=== PATIENT | male | born 1960 | race Hispanic/Latino ===

== ENCOUNTER → 2018-06-24 | Day surgery (SDC) | payer OTHER ==
[~2018-06-24] MED LIST: AMPICILLIN PO; CLINDAMYCIN 300MG 50 ML IV ONE; FENTANYL CITRATE/PF 100MCG/2 ML INJ ONE; GENTAMICIN 120MG/NS 100ML 100 ML ONE; LIDOCAINE HCL 2% LOCAL INJ 5 ML SDV VIAL INJ ONE; MIDAZOLAM HCL 2 MG/2 ML VIAL ONE; PROPOFOL IV EMULSION 10 MG/ML 20 ML VIAL ONE; PYRIDIUM100 MG PO
[2018-06-24 08:40] VITALS: BP 117/81
--- NOTE | 2018-06-24 12:58 | Operative Report ---
DATE OF PROCEDURE: June 24, 2018 PREOPERATIVE DIAGNOSIS: Prostate-specific antigen of 11. POSTOPERATIVE DIAGNOSIS Prostate-specific antigen of 11. PROCEDURES 1. Prostate ultrasound. 2. Ultrasound guidance needle biopsy. 3. Needle biopsy of prostate. ANESTHESIA: General. ESTIMATED BLOOD LOSS: Minimal. COMPLICATIONS: None. INDICATIONS FOR PROCEDURE: Mr. Pandya is a 57-year-old male with an elevated PSA of 11. He and I had a long discussion regarding the alternatives, risks and benefits, including doing nothing and prostate biopsy. He voiced an understanding of the options, the alternatives, and the risks and benefits. He had a negative urine culture. He was given prophylactic antibiotics per the guidelines. 1. PROCEDURE IN DETAIL: After a time out was taken, a prostate ultrasound was performed. A transrectal ultrasound probe was inserted anally with a plethora of lubrication. There were normal-appearing seminal vesicles. There was a large prostate greater than 62 mL. No calcifications. No hypoechoic areas. Impression: Benign prostatic hypertrophy. 2. Ultrasound guidance. I was present and I guided the ultrasound biopsy. 3. Needle biopsy of the prostate. Total of 12-core approach was performed for the prostate biopsies. Specimens were passed off the table with minimal bleeding. The patient tolerated the procedure well and was transported to the recovery room in excellent condition. No untoward effects noted. Job#: [id number]
== END | disposition home or self-care (01) ==
LOC: OR 07:04
PROVIDERS: ATTEND Urology
DX: R97.20 Elevated prostate specific antigen [PSA] (principal); N41.0 Acute prostatitis; Z01.810 Encounter for preprocedural cardiovascular examination
CPT/HCPCS: 55700; 76872; 88305; 93005; J1580; J2001; J2250; J2704; 76998

== ENCOUNTER 2018-06-25 22:53 | Inpatient (IN) | payer OTHER ==
[~2018-06-25] VITALS: Ht 170.2 cm; Wt 76.4 kg
[2018-06-26] VITALS (7 sets, daily range): BP systolic 108–126; BP diastolic 64–75
[2018-06-26 00:16] LABS: BASOPHILS % 0.1 % (0.0-1.0); HEMOGLOBIN 14.7 g/dL (14.0-18.0); LYMPHOCYTES # (AUTO) 0.4 (1.0-3.2); LYMPHOCYTES % 2.8 % (18.0-39.1); MEAN CORPUSCULAR HEMOGLOBIN 31.1 pg (28-32); MEAN CORPUSCULAR VOLUME 88.8 fL (81-99); MONOCYTES # (AUTO) 0.6 (0.2-0.8); MONOCYTES % 4.3 % (4.4-11.3); PLATELET COUNT 205 x10e3/uL (140-360); RED BLOOD COUNT 4.73 x10e6/uL (4.3-5.7); RED CELL DISTRIBUTION WIDTH 12.4 % (11.7-14.4)
[2018-06-26 00:30] LABS: CLARITY,URINE CLOUDY (CLEAR); COLOR,URINE YELLOW (YELLOW); LEUKOCYTE ESTERASE ,URINE TRACE (NEGATIVE); NITRITE,URINE NEGATIVE (NEGATIVE); PROTEIN,URINE DIPSTICK 1+ (NEGATIVE)
[2018-06-26 00:31] LABS: BILIRUBIN,URINE NEGATIVE (NEGATIVE); KETONES,URINE NEGATIVE (NEGATIVE); URINE UROBILINOGEN 0.2 mg/dL (0.2 - 1)
[2018-06-26 00:36] LABS: ALBUMIN 3.6 g/dL (3.5-5.0); ALBUMIN/GLOBULIN RATIO 0.9 (0.8-2.0); ALKALINE PHOSPHATASE 68 IU/L (40-150); ANION GAP 14.5 mmol/L (8-16); BLOOD UREA NITROGEN 22 mg/dL (7-26); BUN/CREATININE RATIO 20 (6-25); CALCIUM 8.8 mg/dL (8.4-10.2); CARBON DIOXIDE 18 mmol/L (22-29); CHLORIDE 107 mmol/L (98-107); EST GLOMERULAR FILTRATION RATE > 60 ML/MIN (60-); GLUCOSE 133 mg/dL (74-118); POTASSIUM 3.5 mmol/L (3.5-5.1); SODIUM 136 mmol/L (136-145)
[2018-06-26 00:44] LABS: BACTERIA,URINE MODERATE /HPF; EPITHELIAL CELLS,URINE FEW /LPF; MUCUS,URINE MANY (RARE); RBC,URINE >50 /HPF (0-5)
[2018-06-26] MEDS ORDERED: CEFTRIAXONE SOD 1 GM VIAL IV SCH ×2 (00:45→10:30)
[2018-06-26] MEDS ORDERED: ACETAMINOPHEN 325 MG TAB PO ONE (00:45)
[2018-06-26] MEDS ORDERED: SODIUM CHLORIDE 0.9% 1000ML 1,000 ML IV SCH ×3 (00:45→03:30)
[2018-06-26 01:11] LABS: ALANINE AMINOTRANSFERASE 38 IU/L (0-55)
[2018-06-26] MEDS ORDERED: CEFTRIAXONE SOD 1 GM/NS 50 ML 50 ML IV ONE (01:55)
[2018-06-26] MEDS: SODIUM CHLORIDE 0.9% 1000ML 1,000 ML IV SCH ×4 (02:07→18:08)
--- NOTE | 2018-06-26 02:09 | Diagnostic Imaging Report ---
EXAM: CT ABDOMEN/PELVIS WO DATE: 06/26/2018 12:49 AM INDICATION: Right flank pain, status post prostate biopsy COMPARISON: None TECHNIQUE: The abdomen and pelvis were scanned using a multidetector helical scanner. Coronal and sagittal reformations were obtained. CT low dose techniques were utilized, as applicable. IV Contrast: 0 ml Isovue 300/370 FINDINGS: Lack of IV contrast decreases sensitivity in evaluating abdominal and pelvic organs. LOWER THORAX: No consolidations LIVER/BILIARY: Incidental calcifications posteriorly. Otherwise unremarkable noncontrast appearance. GALLBLADDER: Unremarkable SPLEEN: Unremarkable PANCREAS: Unremarkable ADRENALS: No nodules KIDNEYS: No stones. No hydronephrosis. GI TRACT: Mild thickening of the rectum and to a lesser extent sigmoid colon with marked perirectal inflammatory changes. Normal appendix. VESSELS: Minimal atherosclerotic calcification PERITONEUM/RETROPERITONEUM: No free air or fluid LYMPH NODES: No lymphadenopathy REPRODUCTIVE ORGANS/BLADDER: Prostatomegaly with circumferential bladder wall thickening which may indicate chronic outlet obstruction. Moderate stranding around the prostate. SOFT TISSUES: Small fat-containing left inguinal hernia. BONES: No suspicious bone lesions. Posterior disc osteophyte at L5-S1. IMPRESSION: 1. Marked inflammatory changes in the pelvis and about the enlarged prostate related to recent biopsy. 2. Proctitis and mild sigmoid wall thickening, presumably reactive or inflammatory related to recent procedure. Signed by: Dr Darlene Granger MD on 06/26/2018 2:06 AM
--- NOTE | 2018-06-26 03:45 | NUR ---
2 LITERS TOTAL GIVEN
--- NOTE | 2018-06-26 05:50 | NUR ---
Patient arrived to unit at 0420 by a WC and escorted by RAH Brady and his . Assisted patient to room comfortable. AAO x 4. No sob noted. No acute distress noted. Head to toe assessment completed. Bed at low position and locked. Oriented patient to surroundings and voiced understanding. Call light within reach. Patient reports of no pain at this time. Patient stable and will continue to monitor.
--- NOTE | 2018-06-26 07:02 | NUR ---
Received patient mid fowlers position, side rails upx2, call light within reach. AAOX4 to time, person, place, situation. Respirations even and unlabored. Instructed patient to use call light for assistance. Voiced understanding.
[2018-06-26] MEDS ORDERED: HYDROCODONE/APAP 10MG-325MG TAB PO PRN (10:30)
[2018-06-26] MEDS ORDERED: ONDANSETRON HCL INJ 2MG/ML 2ML 2 MG/ML VIAL IV PRN (10:30)
[2018-06-26] MEDS: ACETAMINOPHEN 325 MG TAB PO PRN ×2 (11:51→19:50)
[2018-06-26] MEDS: CEFTRIAXONE SOD 1 GM/NS 50 ML 50 ML IV SCH (11:51)
--- NOTE | 2018-06-26 15:34 | History and Physical ---
CHIEF COMPLAINT: Fever associated with urine tract infection, prostatitis status post prostate biopsy on June 24, 2018. HISTORY OF PRESENT ILLNESS: Patient is a 57-year-old male status post prostate biopsy on Wednesday, June 24, 2018. The patient had an ultrasound-guided needle biopsy. He came in with high fever and hematuria. The patient's laboratory workup in urine shows cloudy urine, 1+ protein, 4+ blood, trace leukocyte esterase with wbc's of 20 and rbc's greater than 50, moderate bacteria. Patient also had a CT scan of abdomen and pelvis showing that he had marked inflammatory changes in the pelvic and about the enlarged prostate related to recent biopsy. He had proctitis and mild sigmoid wall thickening, presumably reactive or inflammatory, related to the recent biopsy on the CT scan of the abdomen and pelvis done in the emergency room last night. The patient is otherwise stable now. He is comfortable other than pelvic pain. PAST MEDICAL HISTORY: Enlarged prostate. PAST SURGICAL HISTORY : Prostate biopsy on June 24, 2018. SOCIAL HISTORY: Patient does not smoke or use alcohol. No recreational drugs. ALLERGIES: NO KNOWN ALLERGY. HOME MEDICATIONS: None. REVIEW OF SYSTEMS: Suprapubic pain, pain with urination, and hematuria. PHYSICAL EXAMINATION VITAL SIGNS: T-max 101.9, T-current is 99.1. Blood pressure is 125/69, pulse rate 80, and respirations 18. GENERAL: The patient is in no acute distress. He is awake. HEENT: Normocephalic, atraumatic. Sclerae anicteric. NECK: Supple grossly. PULMONARY: Clear. CARDIOVASCULAR: Regular rate and rhythm. ABDOMEN: Soft, unremarkable. EXTREMITIES: No cyanosis or edema. NEUROLOGIC: No gross focal deficit. LABORATORY DATA: Sodium is 136, potassium 3.5, chloride 107, bicarb 18, BUN 22, creatinine 1.1, glucose 133. WBC is 14, hemoglobin 14.7, hematocrit 42, and platelets are 205. IMPRESSION 1. Prostatitis. 2. Hematuria. 3. Urinary tract infection, all related to post complication of prostate biopsy. PLAN: Continue with IV antibiotics. IV fluid. Pain control. Consultation with Dr. Nader Shearer, patient's urologist. We will monitor the patient closely at this time on observation. Job#: [id number] [facility]
--- NOTE | 2018-06-26 18:25 | NUR ---
Resting in bed. No s/s of acute distress noted. Report to be given to oncoming nurse
--- NOTE | 2018-06-26 18:30 | Consultation ---
DATE OF CONSULTATION: June 26, 2018 INITIAL VISIT CONSULTATION SERVICE: Urology. ATTENDING: Dr. Xavier Rayo. REASON FOR VISIT: UTI and sepsis following prostate biopsy. HISTORY OF PRESENT ILLNESS: This is a 57-year-old patient who was found to have an elevated PSA. On June 24, 2018, he underwent biopsy of the prostate. Antibiotic was given. The patient was admitted to the hospital through the emergency room with leukocyte esterase positive as well as elevated leukocytes. Patient did have fever. CT scan of the abdomen and pelvis that was done in the emergency room. The CT suggested some inflammatory changes in the pelvis. PAST MEDICAL HISTORY: Enlarged prostate and elevated PSA. PAST SURGICAL HISTORY: Prostate biopsy, June 24, [address] Nader Shearer. HOME MEDICATIONS: None. REVIEW OF SYSTEMS: Except for the suprapubic tube and history of fever and some hematuria. All other 12 systems were negative. FAMILY HISTORY: Noncontributory. MEDICATIONS: See MAR. PHYSICAL EXAMINATION GENERAL: Patient is alert and oriented x 3. VITAL SIGNS: Blood pressure 125/70, pulse 80, respirations 16, temperature now 97.9. HEENT: Head symmetric. Eyes normal. NECK: No JVD or masses. CHEST: Clear. HEART: Regular. ABDOMEN: Soft. : External genitalia unremarkable. No testicular masses. RECTAL: Enlarged and tender prostate which is somewhat soft. LABORATORY DATA: White count 14.41, hemoglobin 14.7. Creatinine 1.1, BUN 22. Electrolytes normal. Urinalysis with 50 red blood cells and 11 to 20 white blood cells per high power field. Urine culture is still pending. IMPRESSION 1. Urinary tract infection, history of sepsis. 2. Status post biopsy of the prostate. 3. History of enlarged prostate and elevated prostate specific antigen. 4. Low potassium. PLAN: Continue with current antibiotic treatment. Pending the culture. Antibiotic may have to be changed. So far, his response to antibiotic is well. Job#: [id number] [facility]
[2018-06-27] VITALS (8 sets, daily range): BP systolic 104–129; BP diastolic 60–82
[2018-06-27] MEDS: CEFTRIAXONE SOD 1 GM/NS 50 ML 50 ML IV SCH (00:30)
[2018-06-27 05:06] LABS: BASOPHILS % 0.2 % (0.0-1.0); EOSINOPHILS % 0.1 % (0.0-6.0); HEMATOCRIT 36.8 % (38.2-49.6); HEMOGLOBIN 12.4 g/dL (14.0-18.0); LYMPHOCYTES # (AUTO) 0.9 (1.0-3.2); MEAN CORPUSCULAR HEMOGLOBIN 30.7 pg (28-32); MEAN CORPUSCULAR HGB CONC 33.7 g/dL (31-35); MEAN CORPUSCULAR VOLUME 91.1 fL (81-99); MONOCYTES # (AUTO) 1.1 (0.2-0.8); MONOCYTES % 7.8 % (4.4-11.3); NEUTROPHILS # (AUTO) 12.2 (2.1-6.9); NEUTROPHILS % 85.3 % (38.7-80.0); PLATELET COUNT 154 x10e3/uL (140-360); RED BLOOD COUNT 4.04 x10e6/uL (4.3-5.7)
[2018-06-27 05:32] LABS: ALANINE AMINOTRANSFERASE 36 IU/L (0-55); ALBUMIN 2.6 g/dL (3.5-5.0); ALBUMIN/GLOBULIN RATIO 0.7 (0.8-2.0); ALKALINE PHOSPHATASE 82 IU/L (40-150); BLOOD UREA NITROGEN 8 mg/dL (7-26); BUN/CREATININE RATIO 8 (6-25); CALCIUM 8.1 mg/dL (8.4-10.2); CARBON DIOXIDE 22 mmol/L (22-29); CHLORIDE 104 mmol/L (98-107); CREATININE, SERUM 0.96 mg/dL (0.72-1.25); EST GLOMERULAR FILTRATION RATE > 60 ML/MIN (60-); GLUCOSE 120 mg/dL (74-118); SODIUM 134 mmol/L (136-145)
[2018-06-27] MEDS: ACETAMINOPHEN 325 MG TAB PO PRN ×2 (06:40→20:05)
[2018-06-27] MEDS: SODIUM CHLORIDE 0.9% 1000ML 1,000 ML IV SCH (09:55)
[2018-06-27] MEDS ORDERED: CEFEPIME HCL 1 GM VIAL IV SCH (10:30)
[2018-06-27] MEDS ORDERED: CEFEPIME 1GM/NS 0.9% 50 ML 50 ML IV SCH (11:00)
[2018-06-27] MEDS: CEFEPIME 1GM/NS 0.9% 50 ML 50 ML IV SCH ×2 (11:30→22:33)
[2018-06-27] MEDS: VANCOMYCIN 1GM/NS 250 ML 250 ML IV SCH ×2 (12:30→23:15)
[2018-06-27] MEDS ORDERED: PHENAZOPYRIDINE HCL 100 MG TAB PO ONE (17:10)
--- NOTE | 2018-06-27 17:42 | NUR ---
PATIENT ARRIVED TO ROOM 289 AT THIS TIME. HE IS IN STABLE CONDITION. ORIENTED TO ROOM, BATHROOM, AND VISITING HOURS.
--- NOTE | 2018-06-27 18:49 | NUR ---
REPORT GIVEN TO ONCOMING NURSE, PATIENT IS IN STABLE CONDITION. NO ACUTE DISTRESS NOTED. DENIES PAIN OR DISCOMFORT. AT BEDSIDE. CALL LIGHT WITHIN REACH. BED IN THE LOWEST POSITION.
[2018-06-27] MEDS: PHENAZOPYRIDINE HCL 100 MG TAB PO SCH (22:21)
[2018-06-28] VITALS (8 sets, daily range): BP systolic 118–133; BP diastolic 70–84
[2018-06-28] MEDS: CEFEPIME 1GM/NS 0.9% 50 ML 50 ML IV SCH ×2 (00:25→11:38)
[2018-06-28] MEDS: SODIUM CHLORIDE 0.9% 1000ML 1,000 ML IV SCH ×3 (00:49→21:18)
[2018-06-28 05:57] LABS: BASOPHILS % 0.3 % (0.0-1.0); EOSINOPHILS # (AUTO) 0.1 (0.0-0.4); EOSINOPHILS % 0.6 % (0.0-6.0); HEMATOCRIT 34.9 % (38.2-49.6); HEMOGLOBIN 11.6 g/dL (14.0-18.0); LYMPHOCYTES # (AUTO) 1.5 (1.0-3.2); LYMPHOCYTES % 15.3 % (18.0-39.1); MEAN CORPUSCULAR HEMOGLOBIN 29.8 pg (28-32); MEAN CORPUSCULAR HGB CONC 33.2 g/dL (31-35); MEAN CORPUSCULAR VOLUME 89.7 fL (81-99); MONOCYTES % 10.1 % (4.4-11.3); NEUTROPHILS # (AUTO) 6.9 (2.1-6.9); PLATELET COUNT 181 x10e3/uL (140-360); RED BLOOD COUNT 3.89 x10e6/uL (4.3-5.7); RED CELL DISTRIBUTION WIDTH 13.2 % (11.7-14.4)
[2018-06-28 06:25] LABS: BLOOD UREA NITROGEN 9 mg/dL (7-26); BUN/CREATININE RATIO 11 (6-25); CALCIUM 8.4 mg/dL (8.4-10.2); CARBON DIOXIDE 21 mmol/L (22-29); CHLORIDE 109 mmol/L (98-107); CREATININE, SERUM 0.82 mg/dL (0.72-1.25); EST GLOMERULAR FILTRATION RATE > 60 ML/MIN (60-); GLUCOSE 98 mg/dL (74-118); SODIUM 138 mmol/L (136-145)
--- NOTE | 2018-06-28 07:18 | NUR ---
RECEIVED PATIENT RESTING IN BED. NO ACUTE DISTRESS NOTED. AT BEDSIDE. CALL LIGHT WITHIN REACH. BED IN THE LOWEST POSITION.
[2018-06-28] MEDS: PHENAZOPYRIDINE HCL 100 MG TAB PO SCH ×3 (09:02→17:46)
[2018-06-28] MEDS: VANCOMYCIN 1GM/NS 250 ML 250 ML IV SCH ×2 (10:03→23:00)
[2018-06-28] MEDS: NYSTATIN SUSPENSION 5 ML UDC PO SCH ×2 (14:24→21:00)
--- NOTE | 2018-06-28 19:15 | NUR ---
REPORT GIVEN TO ONCOMING NURSE, PATIENT IS SITTING UP IN COUCH. NO ACUTE DISTRESS NOTED. CALL LIGHT WITHIN REACH.
--- NOTE | 2018-06-28 20:00 | NUR ---
Pt had shower. Changed linens.
--- NOTE | 2018-06-28 21:45 | NUR ---
Blood drawn and sent to lab for vanco trough.
--- NOTE | 2018-06-28 22:10 | NUR ---
awaiting on lab results of anjelica malave
--- NOTE | 2018-06-28 22:25 | NUR ---
IV to right ac leaking. IV removed from right ac with tip intact. New IV placed to right forearm.
[2018-06-29] VITALS: BP 120/64
[2018-06-29] MEDS: CEFEPIME 1GM/NS 0.9% 50 ML 50 ML IV SCH (00:25)
[2018-06-29] MEDS: SODIUM CHLORIDE 0.9% 1000ML 1,000 ML IV SCH (00:49)
[2018-06-29 04:15] VITALS: BP 110/64
--- NOTE | 2018-06-29 07:30 | NUR ---
PT UP IN BED NO DISTRESS NTOED,DENIES PAIN.
[2018-06-29 07:33] VITALS: BP 137/70
[2018-06-29] MEDS: NYSTATIN SUSPENSION 5 ML UDC PO SCH (09:00)
[2018-06-29] MEDS: PHENAZOPYRIDINE HCL 100 MG TAB PO SCH (09:15)
[2018-06-29] MEDS: VANCOMYCIN 1GM/NS 250 ML 250 ML IV SCH (09:15)
--- NOTE | 2018-06-29 09:16 | NUR ---
DR KAYE HERE OK TO DCD HOME
--- NOTE | 2018-06-29 09:46 | Discharge Summary ---
FINAL DIAGNOSES 1. Sepsis without shock. 2. Fever and leukocytosis, resolved. 3. Urinary tract infection associated with prostatitis, status post prostate biopsy. The bacteria is Escherichia coli and Enterococcus faecalis, sensitive to ampicillin. SUMMARY: Patient is a 57-year-old male, status post prostate biopsy. The patient came in with fever, leukocytosis and chills. Patient also has low blood pressure and responded to IV fluid bolus. He did better. He had a urinary tract infection associated with prostatitis, dysuria and increased urinary frequency. Urine culture grew out gram-negative rods consistent with E. coli and Enterococcus faecalis, all sensitive to ampicillin. Patient was discharged home now with ampicillin 500 mg every 6 hours for 10 days, Pyridium 100 mg q.8 h. p.r.n. for dysuria. The patient was instructed to follow up with Dr. Nader Shearer, his urologist next week. Patient is stable and discharged home today. Job#: [id number] [facility]
[2018-06-29] MEDS ORDERED: AMPICILLIN PO (09:59)
[2018-06-29] MEDS ORDERED: PYRIDIUM100 MG PO (10:00)
--- NOTE | 2018-06-29 10:20 | NUR ---
PT DISCHARGED HOME IV DCD WITHOUT REDNESS OR SWELLING,TRANSPORTED TO [facility] VIA W/C
== END 2018-06-29 10:36 | disposition home or self-care (01) | DRG 872 ==
LOC: ER 23:04 → ERHOLD 06-26 01:04 → IMCU 06-26 04:41 → OBSVTOIN 06-27 10:22 → MED/SURG3 06-27 16:30
PROVIDERS: ADMIT Internal Medicine; ATTEND Internal Medicine
DX: A41.9 Sepsis, unspecified organism (principal); N39.0 Urinary tract infection, site not specified; N41.9 Inflammatory disease of prostate, unspecified; R31.9 Hematuria, unspecified; E87.6 Hypokalemia; N40.0 Benign prostatic hyperplasia without lower urinary tract symptoms; D64.9 Anemia, unspecified; B96.20 Unspecified Escherichia coli [E. coli] as the cause of diseases classified elsewhere; B95.2 Enterococcus as the cause of diseases classified elsewhere
CPT/HCPCS: 36415; 74176; 80048; 80053; 80202; 81001; 83605; 85025; 87040; 87086; 87186; 99283; G0378; J0692; J0696; J3370; J7030